=== PATIENT | male | born 1970 | race Caucasian/White ===

== ENCOUNTER → 2021-06-10 | Outpatient (CLI) | payer BC | LOC: LAB 15:23 → LAB SHORT 15:23 | DX: D48.5 Neoplasm of uncertain behavior of skin (principal) | CPT/HCPCS: 88305 ==

== ENCOUNTER 2021-07-14 11:20 | Day surgery (SDC) | payer BC ==
[~2021-07-14] VITALS: Ht 182.9 cm; Wt 90.8 kg
== END 2021-07-14 13:20 | disposition home or self-care (01) ==
LOC: ORSCSDS 11:20
PROVIDERS: Internal Medicine Gastroenterology
PROC: 0DBL8ZX Excision of Transverse Colon, Via Natural or Artificial Opening Endoscopic, Diagnostic (ICD-10-PCS; principal; 2021-07-14 12:45)
PROC: 0DBP8ZX Excision of Rectum, Via Natural or Artificial Opening Endoscopic, Diagnostic (ICD-10-PCS; principal; 2021-07-14 12:45)
PROC: 0DBM8ZX Excision of Descending Colon, Via Natural or Artificial Opening Endoscopic, Diagnostic (ICD-10-PCS; principal; 2021-07-14 12:45)
PROC: 0DBN8ZX Excision of Sigmoid Colon, Via Natural or Artificial Opening Endoscopic, Diagnostic (ICD-10-PCS; principal; 2021-07-14 12:45)
DX: Z12.11 Encounter for screening for malignant neoplasm of colon (principal); D12.3 Benign neoplasm of transverse colon; D12.4 Benign neoplasm of descending colon; D12.5 Benign neoplasm of sigmoid colon; D12.8 Benign neoplasm of rectum; K64.4 Residual hemorrhoidal skin tags
CPT/HCPCS: 88305; J2704; J7120

== ENCOUNTER 2024-09-21 10:39 | Day surgery (SDC) | payer BC ==
[~2024-09-21] VITALS: Ht 182.9 cm; Wt 98.5 kg
[~2024-09-21 10:39] MED LIST: Lactated Ringer's 1,000 ML IV ONE; Lactated Ringer's 1,000 ML ONE; propofoL 50 ML IV ONE
[2024-09-21] MEDS ORDERED: Lactated Ringer's 1,000 ML IV ONE (12:25)
[2024-09-21 12:54] VITALS: BP 104/76
== END 2024-09-21 12:54 | disposition home or self-care (01) ==
LOC: ORSCSDS 10:39
PROVIDERS: Internal Medicine Gastroenterology
PROC: 0DBL8ZX Excision of Transverse Colon, Via Natural or Artificial Opening Endoscopic, Diagnostic (ICD-10-PCS; principal; 2024-09-21 12:15)
PROC: 0DBN8ZX Excision of Sigmoid Colon, Via Natural or Artificial Opening Endoscopic, Diagnostic (ICD-10-PCS; principal; 2024-09-21 12:15)
DX: Z12.11 Encounter for screening for malignant neoplasm of colon (principal); Z86.0101 Personal history of adenomatous and serrated colon polyps; D12.5 Benign neoplasm of sigmoid colon; K63.5 Polyp of colon; K57.30 Diverticulosis of large intestine without perforation or abscess without bleeding
CPT/HCPCS: 88305; J2704; J7120

== ENCOUNTER 2024-12-12 07:34 | Day surgery (SDC) | payer BC ==
[~2024-12-12] VITALS: Ht 180.3 cm; Wt 97.2 kg
[2024-12-12] VITALS (7 sets, daily range): BP systolic 124–134; BP diastolic 45–90
[~2024-12-12 07:34] MED LIST changes: -Lactated Ringer's 1,000 ML IV ONE; -Lactated Ringer's 1,000 ML ONE; +MULTI-VITAMIN1 EAC2 PO; +TADA10TA; -propofoL 50 ML IV ONE
[2024-12-12] MEDS ORDERED: Lactated Ringer's 1,000 ML IV SCH (07:40)
[2024-12-12] MEDS ORDERED: Ondansetron HCl 2 MG / ML 2ML Vial ONE (08:03)
[2024-12-12] MEDS ORDERED: Rocuronium Bromide 10 MG/ML 5ML Injection IV ONE (08:03)
[2024-12-12] MEDS ORDERED: FentaNYL Citrate 50 MCG/ML 5 ML Injection ONE (08:03)
[2024-12-12] MEDS ORDERED: propofoL 20 ML IV ONE (08:03)
[2024-12-12] MEDS ORDERED: Dexamethasone Sod Phos 10 MG/ML 1ML VIAL ONE (08:03)
[2024-12-12] MEDS ORDERED: Ketorolac Tromethamine 30mg Vial ONE (08:03)
--- NOTE | 2024-12-12 08:28 | NUR ---
Ambulatory in Day Surgery History, Chart, Medications and Allergies reviewed before start of procedure. Pre-Op teaching done. Pt verbalizes understanding. Patient States Post-Procedure ride home has been arranged.
[2024-12-12] MEDS ORDERED: Bupivacaine 0.5% HCl 5 MG/ML 30MLVIAL ONE (09:50)
[2024-12-12] MEDS ORDERED: CeFAZolin Sodium 1000 mg Vial ONE (10:20)
--- NOTE | 2024-12-12 10:39 | NUR ---
12/12/24 1039 Renuka Garcia NOTED: RASIED RED RASH TO PTS ABDOMEN
[2024-12-12] MEDS ORDERED: Sugammadex Sodium 200 MG/2ML SDV (100 MG/ML) ONE (10:50)
[2024-12-12] MEDS ORDERED: HYDROmorphone HCl/Pf 1MG SYR IV PRN ×2 (11:00→11:05)
[2024-12-12] MEDS ORDERED: Metoclopramide HCl 5MG / ML 2ML Vial IV PRN (11:05)
[2024-12-12] MEDS ORDERED: Ondansetron HCl 2 MG / ML 2ML Vial IV PRN (11:05)
[2024-12-12] MEDS ORDERED: Albuterol 2.5 MG/3 ML VIAL INH PRN (11:05)
[2024-12-12] MEDS ORDERED: Labetalol HCL 5 MG/ML 4ML Injection (Single Dose) IV PRN (11:05)
[2024-12-12] MEDS ORDERED: FentaNYL Citrate 50 MCG/ML 2 ML Injection IV PRN (11:10)
[2024-12-12] MEDS ORDERED: Atropine Sulfate 0.1 MG/ML 10ML SYR IV PRN (11:10)
[2024-12-12] MEDS ORDERED: ePHEDrine Sulfate 50 MG/ML 1ML Injection IV PRN (11:10)
[2024-12-12] MEDS ORDERED: Ketorolac Tromethamine 15mg Vial IV PRN (11:15)
[2024-12-12] MEDS ORDERED: FentaNYL Citrate 50 MCG/ML 2 ML Injection ONE (11:27)
[2024-12-12] MEDS ORDERED: HYDROcodone 5-APAP 325 TAB PO PRN (11:35)
--- NOTE | 2024-12-12 12:05 | NUR ---
PT PAIN INCREASED WHILE TRYING TO AMBULATE TO GET DRESSED. PT MEDICATED BASED ON PAIN SCALE.
--- NOTE | 2024-12-12 12:06 | NUR ---
Discharge instructions reviewed with patient. Patient verbalizes understanding. Copy given to patient to take home. Discharged via wheelchair to private car for ride home. Patient States Post-Procedure ride home has been arranged WITH [facility].
== END 2024-12-12 12:21 | disposition home or self-care (01) ==
LOC: ORSCMMR 07:34 → ORD 09:00 → ORSCMMR 12:21
PROVIDERS: Surgery
PROC: 0WQF0ZZ Repair Abdominal Wall, Open Approach (ICD-10-PCS; principal; 2024-12-12 10:00)
DX: K42.9 Umbilical hernia without obstruction or gangrene (principal); F17.220 Nicotine dependence, chewing tobacco, uncomplicated
CPT/HCPCS: A9270; J0690; J1100; J1885; J2405; J2704; J3010; J7120